=== PATIENT | male | born 1960 | race Caucasian/White ===

== ENCOUNTER 2019-01-14 20:35 | Emergency (ER) | payer OTHER ==
[~2019-01-14] VITALS: Ht 182.9 cm; Wt 79.4 kg
[2019-01-14 22:33] VITALS: BP 132/92
[2019-01-14] MEDS ORDERED: SODIUM CHLORIDE 0.9% 1,000 ML IV ONE (22:45)
[2019-01-14] MEDS ORDERED: methylPREDNISolone SOD SUCC 125 MG/2 ML VL IV ONE (22:45)
[2019-01-14] MEDS ORDERED: CEFTRIAXONE SODIUM 2 GM in D5W 5% 50 ML IV ONE (22:45)
[2019-01-14] MEDS ORDERED: EPINEPHrine HCL 1 MG/1 ML AMP SC ONE (22:45)
[2019-01-14] MEDS ORDERED: cefTRIAXone SOD 1,000 MG VL ONE (23:44)
== END 2019-01-15 01:09 | disposition home or self-care (01) ==
LOC: EDBD 20:43 → MERGE 20:43 → ER 20:43
DX: L23.9 Allergic contact dermatitis, unspecified cause (principal); X58.XXXA Exposure to other specified factors, initial encounter
CPT/HCPCS: 96365; 96372; 96375; 99283; J0171; J0696; J2930; J7030; J7060